=== PATIENT | female | born 1965 | race Caucasian/White ===

== ENCOUNTER → 2020-01-18 09:08 | Outpatient (CLI) | payer MEDICARE, BC, MEDICAID | END | disposition home or self-care (01) | LOC: D.NM 09:08 | PROVIDERS: ATTEND Internal Medicine Gastroenterology | DX: R14.0 Abdominal distension (gaseous) (principal) ==

== ENCOUNTER → 2020-02-07 14:40 | Outpatient (CLI) | payer MEDICARE, BC, MEDICAID | END | disposition home or self-care (01) | LOC: D.RAD 14:40 | PROVIDERS: ATTEND Internal Medicine Gastroenterology | DX: R10.84 Generalized abdominal pain (principal); K59.00 Constipation, unspecified ==

== ENCOUNTER → 2020-02-08 14:21 | Outpatient (CLI) | payer MEDICARE, BC, MEDICAID | END | disposition home or self-care (01) | LOC: D.CT 14:21 | PROVIDERS: ATTEND Surgery | DX: R10.13 Epigastric pain (principal) ==

== ENCOUNTER 2020-07-05 07:40 | Emergency (ER) | payer MEDICARE, BC, MEDICAID ==
[~2020-07-05] VITALS: Ht 157.5 cm; Wt 68.2 kg
[2020-07-05 07:50] VITALS: Ht 157.5 cm; Wt 68.2 kg
[2020-07-05 08:41] LABS: BASOPHILS 0.8 % (0-2); HEMATOCRIT 43.3 % (36.0-48.0); HEMOGLOBIN 13.9 g/dL (12-16); IMMATURE GRANULOCYTES 0.2 % (0-5); LYMPHOCYTE ABS# 1.61 10x3/uL (1.18-3.74); LYMPHOCYTES 26.3 % (15-50); MCH 29.1 pg (26.0-34.0); MCHC 32.1 g/dL (31.0-37.0); MCV 90.8 fL (80.0-100.0); MONOCYTES 7.7 % (2-11); NEUTROPHIL ABS# 3.87 10x3/uL (1.56-6.13); PLATELET COUNT 253 10x3/uL (130-400); RBC 4.77 10x6/uL (4.00-5.40); RDW 13.4 % (11.5-14.5); WBC 6.1 10x3/uL (4.8-10.8)
[2020-07-05 08:48] LABS: APTT 27.7 SECONDS (22.8-39.4); INR 1.1 (0.85-1.17); PROTIME 13.1 SECONDS (11.6-15.0)
[2020-07-05 08:49] LABS: D-DIMER-QUANTITATIVE 0.71 ug/mLFEU (0.20-0.54)
[2020-07-05 08:53] LABS: CALC OSMOLALITY 285 mosm/kg (275-300); CALCIUM 9.1 mg/dL (8.5-10.1); CARBON DIOXIDE 27.2 mmol/L (21.0-32.0); CHLORIDE - SERUM 108 mmol/L (98-107); CREATININE - SERUM 0.9 mg/dL (0.6-1.3); GLUCOSE 108 mg/dL (74-106); POTASSIUM - SERUM 4.2 mmol/L (3.5-5.1); SODIUM 143 mmol/L (136-145); UREA NITROGEN 13 mg/dL (7-18); eGFR NON AFRICAN AMERICAN 69 mL/min (90-120)
[2020-07-05 09:17] LABS: ALBUMIN 3.5 g/dL (3.4-5.0); ALKALINE PHOSPHATASE 170 U/L (30-120); ALT (SGPT) 25 U/L (10-68); BILIRUBIN - TOTAL 0.52 mg/dL (0.2-1.3); CKMB 1.9 U/L (0.0-3.6); CREATINE KINASE 144 UL (21-215); PRO BNP 2371 pg/mL (0-125); PROTEIN - SERUM 7.9 g/dL (6.4-8.2)
[2020-07-05 09:18] LABS: TROPONIN-I < 0.017 ng/mL (0.000-0.060)
[2020-07-05 10:48] LABS: SARS-CoV-2 ANTIGEN NEGATIVE- SARS-COV-2 (NEGATIVE)
[2020-07-05 11:01] LABS: BILIRUBIN NEGATIVE (NEGATIVE); KETONE NEGATIVE (NEGATIVE); NITRITE NEGATIVE (NEGATIVE); UROBILINOGEN NORMAL mg/dL (< 2)
[2020-07-05 11:03] LABS: BACTERIA FEW HPF (NONE SEEN); SQUAMOUS EPITHELIAL RARE HPF (0-4); WHITE CELLS - URINE OCC HPF (0-4)
[2020-07-05 13:51] VITALS: BP 114/67
== END 2020-07-05 14:15 | disposition home or self-care (01) ==
LOC: D.ER 07:40
PROVIDERS: Emergency Medicine
DX: I47.1 Supraventricular tachycardia (principal); S06.9X0A Unspecified intracranial injury without loss of consciousness, initial encounter

== ENCOUNTER 2020-10-11 21:53 | Inpatient (IN) | payer MEDICARE, BC, MEDICAID ==
[~2020-10-11] VITALS: Ht 157.5 cm; Wt 84.1 kg
[2020-10-11 22:00] VITALS: Ht 157.5 cm; Wt 84.1 kg
[2020-10-12 00:15] LABS: BASOPHILS 0.9 % (0-2); EOSINOPHILS 1.2 % (0-7); HEMATOCRIT 41.9 % (36.0-48.0); HEMOGLOBIN 13.7 g/dL (12-16); LYMPHOCYTES 16.2 % (15-50); MCH 29.3 pg (26.0-34.0); MCHC 32.8 g/dL (31.0-37.0); MCV 89.4 fL (80.0-100.0); MEAN PLATELET VOLUME 9.2 fL (7.4-10.4); MONOCYTES 5.5 % (2-11); NEUTROPHILS 76.2 % (40-80); PLATELET COUNT 226 10x3/uL (130-400); RBC 4.69 10x6/uL (4.00-5.40); RDW 15.3 % (11.5-14.5); WBC 13.4 10x3/uL (4.8-10.8)
[2020-10-12 00:20] LABS: CALC OSMOLALITY 285 mosm/kg (275-300); CALCIUM 9.1 mg/dL (8.5-10.1); CHLORIDE - SERUM 107 mmol/L (98-107); CREATININE - SERUM 0.6 mg/dL (0.6-1.3); GLUCOSE 121 mg/dL (74-106); POTASSIUM - SERUM 4.5 mmol/L (3.5-5.1); SODIUM 143 mmol/L (136-145); UREA NITROGEN 13 mg/dL (7-18); eGFR NON AFRICAN AMERICAN > 90 mL/min (90-120)
[2020-10-12 00:37] LABS: ALBUMIN 3.4 g/dL (3.4-5.0); ALKALINE PHOSPHATASE 169 U/L (30-120); ALT (SGPT) 26 U/L (10-68); CKMB 1.1 U/L (0.0-3.6); CREATINE KINASE 103 UL (21-215); MAGNESIUM - SERUM 2.2 mg/dL (1.8-2.4); PROTEIN - SERUM 7.9 g/dL (6.4-8.2)
[2020-10-12 00:38] LABS: APTT 22.6 SECONDS (22.8-39.4); INR 1.08 (0.85-1.17); PROTIME 12.9 SECONDS (11.6-15.0); TROPONIN-I < 0.017 ng/mL (0.000-0.060)
[2020-10-12 00:43] LABS: D-DIMER-QUANTITATIVE 3.54 ug/mLFEU (0.20-0.54)
--- NOTE | 2020-10-12 00:45 | NUR ---
Dr. Guerra notified D-dimer 3.54
[2020-10-12 00:52] LABS: BILIRUBIN NEGATIVE (NEGATIVE); KETONE NEGATIVE mg/dL (< 1+); NITRITE NEGATIVE (NEGATIVE); SQUAMOUS EPITHELIAL <1 HPF (0-4); UROBILINOGEN NORMAL mg/dL (< 2); WHITE CELLS - URINE 5 HPF (0-4)
[2020-10-12 03:15] VITALS: BP 93/66
--- NOTE | 2020-10-12 04:22 | NUR ---
PT TO CT VIA STRETCHER
--- NOTE | 2020-10-12 05:44 | NUR ---
PT CAME IN WITH AFIB, FX TO RIGHT TIBIA, & POSSIBLE KIDNEY STONES STATED BY FAMILY. PT WAS GIVEN A DOSE OF CARDIZEM AND METOPOROL. PT CONVERTED WITH MEDICATION HELP. PT HAD CT NO CONTRAST OF CHEST, ABD/PELVIS. PT HAS A 20G RIGHT HAND ANTERIOR. PTS VITALS ARE STABLE AT THIS TIME. PT ON 0.45% NORMAL SALINE RUNNING AT 75MLS/HR. 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 PT IS ASLEEP AT THIS TIME, EQUAL RISE AND FALL OF CHEST AND WILL CONTINUE POC AT THIS TIME.
[2020-10-12 08:24] LABS: BASOPHILS 0.5 % (0-2); EOSINOPHILS 0.7 % (0-7); HEMATOCRIT 41.3 % (36.0-48.0); HEMOGLOBIN 13.5 g/dL (12-16); LYMPHOCYTES 11.7 % (15-50); MCH 29.6 pg (26.0-34.0); MCHC 32.8 g/dL (31.0-37.0); MCV 90.2 fL (80.0-100.0); MEAN PLATELET VOLUME 8.6 fL (7.4-10.4); MONOCYTES 4.6 % (2-11); NEUTROPHILS 82.5 % (40-80); RBC 4.58 10x6/uL (4.00-5.40); RDW 15.4 % (11.5-14.5)
[2020-10-12 08:32] LABS: PLATELET COUNT 295 10x3/uL (130-400)
[2020-10-12 08:49] LABS: ALBUMIN 3.7 g/dL (3.4-5.0); ALKALINE PHOSPHATASE 185 U/L (30-120); ALT (SGPT) 24 U/L (10-68); CALC OSMOLALITY 286 mosm/kg (275-300); CALCIUM 9.2 mg/dL (8.5-10.1); CARBON DIOXIDE 27.1 mmol/L (21.0-32.0); CHLORIDE - SERUM 107 mmol/L (98-107); CKMB 1.6 U/L (0.0-3.6); CREATINE KINASE 88 UL (21-215); GLUCOSE 117 mg/dL (74-106); POTASSIUM - SERUM 4.5 mmol/L (3.5-5.1); PROTEIN - SERUM 8.4 g/dL (6.4-8.2); SODIUM 143 mmol/L (136-145); UREA NITROGEN 14 mg/dL (7-18)
[2020-10-12 08:50] LABS: CREATININE - SERUM 0.8 mg/dL (0.6-1.3); TROPONIN-I < 0.017 ng/mL (0.000-0.060); eGFR NON AFRICAN AMERICAN 79 mL/min (90-120)
[2020-10-12 12:12] LABS: MAGNESIUM - SERUM 2.4 mg/dL (1.8-2.4); PHOSPHOROUS 3.8 mg/dL (2.5-4.9); THYROID STIMULATING HORMONE 1.02 uIU/mL (0.36-3.74); VALPROIC ACID (DEPAKOTE) < 3.0 ug/mL (50.0-100.0)
[2020-10-12] MEDS ORDERED: MIRALAX17 GM PO (13:35)
[2020-10-12] MEDS ORDERED: GAS-X125 M1 PO (13:35)
[2020-10-12] MEDS ORDERED: NEURONTIN 300300 MG PO (13:35)
[2020-10-12] MEDS ORDERED: SEROQUEL100 MG PO (13:35)
[2020-10-12] MEDS ORDERED: ACETAMINOPHEN325 MG PO (13:35)
[2020-10-12] MEDS ORDERED: DEPAKOTE ER250 MG PO (13:35)
[2020-10-12] MEDS ORDERED: TYLENOL W/CODEI1 TAB PO (13:38)
[2020-10-12 15:15] VITALS: BP 104/63
== END 2020-10-12 15:15 | disposition home or self-care (01) | DRG 562 ==
LOC: D.ER 21:53 → D.EDHOLD 10-12 02:08 → D.M2 10-12 12:41 → D.EDHOLD 10-12 13:46
PROVIDERS: Emergency Medicine; ADMIT Family Medicine; ATTEND Family Medicine
DX: S82.291A Other fracture of shaft of right tibia, initial encounter for closed fracture (principal); G82.50 Quadriplegia, unspecified; I47.1 Supraventricular tachycardia; Z87.820 Personal history of traumatic brain injury; F48.2 Pseudobulbar affect; G40.909 Epilepsy, unspecified, not intractable, without status epilepticus; X58.XXXA Exposure to other specified factors, initial encounter